=== PATIENT | male | born 1985 | race Caucasian/White ===

== ENCOUNTER → 2018-11-02 08:57 | Outpatient (CLI) | payer SELFPAY ==
[2018-11-02 11:17] LABS: TSH w/ Reflex to FT4 4.94 uIU/mL (0.47-4.68)
[2018-11-02 11:44] LABS: Free T4, Direct Thyroxine 1.62 ng/dL (0.78-2.19)
== END ==
PROVIDERS: PCP Family Medicine; Visit Provider Family Medicine
DX: E03.9 Hypothyroidism, unspecified (principal)
CPT/HCPCS: 36415; 84439; 84443

== ENCOUNTER → 2019-01-02 07:12 | Outpatient (CLI) | payer SELFPAY ==
[2019-01-02 08:46] LABS: TSH w/ Reflex to FT4 4.19 uIU/mL (0.47-4.68)
== END ==
PROVIDERS: PCP Family Medicine; Visit Provider Family Medicine
DX: E03.9 Hypothyroidism, unspecified (principal)
CPT/HCPCS: 36415; 84443

== ENCOUNTER → 2020-04-21 09:44 | Outpatient (CLI) | payer OTHER, SELFPAY ==
[2020-04-21 10:22] LABS: Add Manual Diff / Slide Review NO; Basophils Absolute Auto 0 /uL (0-100); Basophils Percent Auto 0.5 % (0-2); Eosinophils Absolute Auto 100 /uL (0-450); Eosinophils Percent Auto 1.9 % (2-4); Hematocrit 38.2 % (41-53); Lymphocytes Absolute Auto 1400 /uL (1100-4500); Lymphocytes Percent Auto 23.5 % (25-40); Mean Corpuscular HGB Conc 33.9 % (30-36); Mean Corpuscular Hemoglobin 29.3 PG (26-34); Mean Corpuscular Volume 86.4 fL (80-100); Monocytes Absolute Auto 500 /uL (0-900); Monocytes Percent Auto 7.9 % (3-14); Neutrophils Absolute Auto 3800 /uL (1500-7000); Neutrophils Percent Auto 66.2 % (50-75); Platelet Count 198 X10^3/uL (150-400); Red Blood Cell Count 4.42 X10^6/uL (4.5-5.9); Red Cell Distribution Width 14.1 % (11.6-14.8); White Blood Cell Count 5.8 X10^3/uL (4.5-11.0)
[2020-04-21 10:36] LABS: Alanine Aminotransferase 19 IU/L (<50); Albumin Globulin Ratio 1.3 (1.0-2.8); Alkaline Phosphatase 84 U/L (38-126); Aspartate Aminotransferase 23 IU/L (17-59); Bilirubin Total 0.6 mg/dL (0.2-1.3); Blood Urea Nitrogen 20 mg/dL (9-20); Calcium 8.9 mg/dL (8.4-10.2); Carbon Dioxide 30 mmol/L (22-32); Chloride 106 mmol/L (98-107); Cholesterol 139 mg/dL (140-199); Estimated Glomerular Filt Rate > 60.0 mL/min (>60); Globulin 3.2 g/dL (1.7-4.1); Glucose 96 mg/dL (70-100); HDL Cholesterol 36 mg/dL (40-60); HEMOLYSIS < 15 (0-50); LDL Cholesterol Calculated 70 mg/dL (<100); Potassium 4.1 mmol/L (3.4-5.1); Sodium 139 mmol/L (137-145); Total Protein 7.2 g/dL (6.3-8.2); Triglycerides 163 mg/dL (35-150)
[2020-04-21 11:17] LABS: TSH w/ Reflex to FT4 2.46 uIU/mL (0.47-4.68)
== END ==
PROVIDERS: PCP Family Medicine; Referring Provider Family Medicine; Visit Provider Family Medicine
DX: E66.01 Morbid (severe) obesity due to excess calories (principal); E03.9 Hypothyroidism, unspecified; Z68.44 Body mass index [BMI] 60.0-69.9, adult
CPT/HCPCS: 36415; 80053; 80061; 84443; 85025

== ENCOUNTER → 2020-10-02 12:35 | Outpatient (CLI) | payer OTHER, SELFPAY ==
[2020-10-02] MEDS: COVID-19 VACC, Ad26(JANSSEN)/PF 0.5 ML IM (12:42)
== END ==
PROVIDERS: PCP Family Medicine; Visit Provider Internal Medicine
DX: Z23 Encounter for immunization (principal)
CPT/HCPCS: 0031A; 91303

== ENCOUNTER → 2021-03-12 09:42 | Outpatient (CLI) | payer OTHER, SELFPAY ==
[2021-03-12 10:57] LABS: Add Manual Diff / Slide Review NO; Basophils Absolute Auto 0 /uL (0-100); Basophils Percent Auto 0.5 % (0-2); Eosinophils Absolute Auto 200 /uL (0-450); Eosinophils Percent Auto 2.3 % (2-4); Hematocrit 40.3 % (41-53); Hemoglobin 13.8 g/dL (13.5-17.5); Lymphocytes Absolute Auto 2100 /uL (1100-4500); Lymphocytes Percent Auto 28.7 % (25-40); Mean Corpuscular HGB Conc 34.2 % (30-36); Mean Corpuscular Hemoglobin 29.9 PG (26-34); Mean Corpuscular Volume 87.6 fL (80-100); Monocytes Absolute Auto 500 /uL (0-900); Monocytes Percent Auto 7.4 % (3-14); Neutrophils Absolute Auto 4500 /uL (1500-7000); Neutrophils Percent Auto 61.1 % (50-75); Platelet Count 222 X10^3/uL (150-400); Red Cell Distribution Width 13.6 % (11.6-14.8); White Blood Cell Count 7.4 X10^3/uL (4.5-11.0)
[2021-03-12 11:11] LABS: Hemoglobin A1C% w Est Avg Glu 4.8 % (4.0-6.0)
[2021-03-12 11:12] LABS: Alanine Aminotransferase 20 IU/L (<50); Albumin 4.2 g/dL (3.5-5.0); Albumin Globulin Ratio 1.3 (1.0-2.8); Alkaline Phosphatase 84 U/L (38-126); Aspartate Aminotransferase 25 IU/L (17-59); BUN Creatinine Ratio 19.1 (6-22); Bilirubin Total 0.6 mg/dL (0.2-1.3); Blood Urea Nitrogen 18 mg/dL (9-20); Calcium 9.1 mg/dL (8.4-10.2); Carbon Dioxide 30 mmol/L (22-32); Chloride 105 mmol/L (98-107); Cholesterol 149 mg/dL (140-199); Estimated Glomerular Filt Rate > 60.0 mL/min (>60); Globulin 3.3 g/dL (1.7-4.1); Glucose 94 mg/dL (70-100); HDL Cholesterol 38 mg/dL (40-60); HEMOLYSIS < 15 (0-50); LDL Cholesterol Calculated 78 mg/dL (<100); Potassium 3.8 mmol/L (3.4-5.1); Sodium 139 mmol/L (137-145); Total Protein 7.5 g/dL (6.3-8.2); Triglycerides 167 mg/dL (35-150)
[2021-03-12 11:41] LABS: Prostate Specific Antigen Scrn 0.449 ng/mL (0.1-4.0)
[2021-03-12 13:47] LABS: TSH w/ Reflex to FT4 2.08 uIU/mL (0.47-4.68)
== END ==
PROVIDERS: PCP Family Medicine; Referring Provider Family Medicine; Visit Provider Family Medicine
DX: E03.9 Hypothyroidism, unspecified (principal); E66.01 Morbid (severe) obesity due to excess calories; Z68.44 Body mass index [BMI] 60.0-69.9, adult; E78.5 Hyperlipidemia, unspecified; Z12.5 Encounter for screening for malignant neoplasm of prostate
CPT/HCPCS: 36415; 80053; 80061; 83036; 84443; 85025; G0103

== ENCOUNTER → 2021-05-06 10:24 | Outpatient (CLI) | payer OTHER, SELFPAY ==
[2021-05-06 12:22] LABS: Hepatitis B Surface Antigen NEGATIVE s/c (NEGATIVE)
[2021-05-07 09:03] LABS: Varicella IgG Antibody 1775 index (Immune >165)
[2021-05-12 11:20] LABS: Hepatitis B Surf Ab Qualitativ Non Reactive (.)
== END ==
PROVIDERS: PCP Family Medicine; Referring Provider Family Medicine; Visit Provider Family Medicine
DX: Z01.84 Encounter for antibody response examination (principal)
CPT/HCPCS: 36415; 86706; 86765; 86787; 87340

== ENCOUNTER → 2023-01-03 13:56 | Outpatient (CLI) | payer OTHER, SELFPAY ==
[2023-01-03 15:26] LABS: Add Manual Diff / Slide Review NO; Basophils Absolute Auto 0 /uL (0-100); Basophils Percent Auto 0.6 % (0-2); Eosinophils Absolute Auto 100 /uL (0-450); Eosinophils Percent Auto 1.7 % (2-4); Hematocrit 40.9 % (41-53); Hemoglobin 14.5 g/dL (13.5-17.5); Lymphocytes Absolute Auto 1600 /uL (1100-4500); Lymphocytes Percent Auto 21.4 % (25-40); Mean Corpuscular HGB Conc 35.4 % (30-36); Mean Corpuscular Hemoglobin 30.8 PG (26-34); Mean Corpuscular Volume 87.2 fL (80-100); Monocytes Absolute Auto 600 /uL (0-900); Monocytes Percent Auto 7.5 % (3-14); Neutrophils Absolute Auto 5100 /uL (1500-7000); Neutrophils Percent Auto 68.8 % (50-75); Platelet Count 241 X10^3/uL (150-400); Red Blood Cell Count 4.69 X10^6/uL (4.5-5.9); Red Cell Distribution Width 13.5 % (11.6-14.8); White Blood Cell Count 7.5 X10^3/uL (4.5-11.0)
[2023-01-03 15:52] LABS: Alanine Aminotransferase 22 IU/L (<50); Albumin 4.5 g/dL (3.5-5.0); Albumin Globulin Ratio 1.5 (1.0-2.8); Alkaline Phosphatase 89 U/L (38-126); Aspartate Aminotransferase 24 IU/L (17-59); BUN Creatinine Ratio 17.2 (6-22); Bilirubin Total 0.9 mg/dL (0.2-1.3); Blood Urea Nitrogen 16 mg/dL (9-20); Calcium 9.3 mg/dL (8.4-10.2); Carbon Dioxide 27 mmol/L (22-32); Chloride 100 mmol/L (98-107); Cholesterol 163 mg/dL (140-199); Estimated Glomerular Filt Rate > 60 mL/min (>60); Globulin 3.1 g/dL (1.7-4.1); Glucose 87 mg/dL (70-100); HDL Cholesterol 43 mg/dL (40-60); HEMOLYSIS < 15 (0-50); LDL Cholesterol Calculated 82 mg/dL (<100); Potassium 4.1 mmol/L (3.4-5.1); Sodium 137 mmol/L (137-145); Total Protein 7.6 g/dL (6.3-8.2); Triglycerides 190 mg/dL (35-150)
[2023-01-03 16:16] LABS: TSH w/ Reflex to FT4 3.68 uIU/mL (0.47-4.68)
[2023-01-04 05:30] LABS: x Labcorp Estim. Avg Glu (eAG) 97 mg/dL (.)
== END ==
PROVIDERS: PCP Family Medicine; Referring Provider Family Medicine; Visit Provider Family Medicine
DX: G47.33 Obstructive sleep apnea (adult) (pediatric) (principal); E66.01 Morbid (severe) obesity due to excess calories; Z68.44 Body mass index [BMI] 60.0-69.9, adult; E03.9 Hypothyroidism, unspecified; I10 Essential (primary) hypertension
CPT/HCPCS: 36415; 80053; 80061; 83036; 84443; 85025

== ENCOUNTER → 2024-03-22 07:55 | Outpatient (CLI) | payer OTHER, SELFPAY ==
[2024-03-22 08:45] LABS: Alanine Aminotransferase 19 IU/L (<50); Albumin 4.3 g/dL (3.5-5.0); Albumin Globulin Ratio 1.3 (1.0-2.8); Alkaline Phosphatase 83 U/L (38-126); Aspartate Aminotransferase 25 IU/L (17-59); BUN Creatinine Ratio 19.2 (6-22); Bilirubin Total 0.6 mg/dL (0.2-1.3); Blood Urea Nitrogen 19 mg/dL (9-20); Calcium 9.4 mg/dL (8.4-10.2); Carbon Dioxide 27 mmol/L (22-32); Chloride 106 mmol/L (98-107); Cholesterol 148 mg/dL (140-199); Estimated Glomerular Filt Rate > 60 mL/min (>60); Globulin 3.2 g/dL (1.7-4.1); Glucose 97 mg/dL (70-100); HDL Cholesterol 38 mg/dL (40-60); HEMOLYSIS < 15 (0-50); LDL Cholesterol Calculated 88 mg/dL (<100); Potassium 4.3 mmol/L (3.4-5.1); Sodium 140 mmol/L (137-145); Total Protein 7.5 g/dL (6.3-8.2); Triglycerides 112 mg/dL (35-150)
[2024-03-22 08:48] LABS: Hemoglobin A1C% w Est Avg Glu 4.8 % (4.0-6.0)
[2024-03-22 09:15] LABS: TSH w/ Reflex to FT4 3.86 uIU/mL (0.47-4.68)
[2024-03-22 09:39] LABS: HIV 1 & 2 Ab/Ag 4th Gen Combo NEGATIVE (NEGATIVE); Hep C Virus Ab w/Reflex Quant NEGATIVE s/c (NEGATIVE)
== END ==
PROVIDERS: PCP Family Medicine; Referring Provider Family Medicine; Visit Provider Family Medicine
DX: Z00.00 Encounter for general adult medical examination without abnormal findings (principal); I10 Essential (primary) hypertension; E66.01 Morbid (severe) obesity due to excess calories; Z68.44 Body mass index [BMI] 60.0-69.9, adult; E03.9 Hypothyroidism, unspecified; E78.2 Mixed hyperlipidemia
CPT/HCPCS: 36415; 80053; 80061; 83036; 84443; 86803; 87389

== ENCOUNTER → 2024-05-09 15:55 | Outpatient (CLI) | payer OTHER, SELFPAY ==
--- NOTE | 2024-05-10 12:04 | DIET.OUTPTC ---
Dietary Outpatient Consultation Note Consultation Date: 05/09/2024 Assessment: 39 y M referred to dietitian for E66.01 - Morbid (severe) obesity due to excess calories, E78.2 - Mixed hyperlipidemia, I10 - Essential (primary) hypertension, Z00.00 - Encounter for general adult medical examination without abnormal findings, Z68.44 - Body mass index [BMI] 60.0-69.9, adult. Otto presents today for help choosing healthier convenient and satisfying meals. Is on semaglutide .5 mg dose with no side effects except increase in heartburn symptoms. Notes it has helped reduce appetite. Has tried other weight loss medication and diets before with no lasting results. Busy work and his child make it harder for him to have time for preparing meals. Goes out to eat or chooses quick processed meals i.e mac and cheese. 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 Ht: 6 ft 1 in Wt: 473 lb 8 oz BMI: 62.4 UBW: - Nutrition Diagnosis: Excessive energy intake r/t energy dense selections over nutrient dense aeb diet recall with eating out multiple days per week Inadequate fluid intake r/t decreased awareness of fluid intake aeb diet recall with 40 oz or less water/day Physical inactivity r/t busy life aeb pt reports, mostly sedentary job Interventions: Discussed the following and provided appropriate handouts: -Balanced meals with myplate method and appropriate portion sizing based on needs -Types of fats -Educ on label reading, looked up examples -Increasing fluid -Brainstorming reasonable meals that fit within myplate method and addressing barriers Goals: 1. Add 20 oz a day of water by refilling bottle at lunch 2. Pre-prepped crockpot meal 2-3x/wk 3. Use my plate method to include veg and protein on pasta nights or veg when out to eat Will address activity next session EER: [id number] kcals (MSJ 3165) 90-100 g protein (1 g Adj. IBW), 35-38 g fiber Monitoring/Evaluations: f/u in 6 wks Electronically Signed by: Radha Heller 05/10/24 12:04 Clinical Dietitian [address] [address]
== END ==
PROVIDERS: PCP Family Medicine; Referring Provider Family Medicine
DX: Z00.00 Encounter for general adult medical examination without abnormal findings (principal); E66.01 Morbid (severe) obesity due to excess calories; E78.2 Mixed hyperlipidemia; I10 Essential (primary) hypertension; Z68.44 Body mass index [BMI] 60.0-69.9, adult
CPT/HCPCS: 97802

== ENCOUNTER → 2024-05-13 09:00 | Outpatient (CLI) | payer OTHER, SELFPAY ==
--- NOTE | 2024-05-13 09:03 | DI.RAD.S_ITS ---
PROCEDURE: XR CHEST 2V INDICATIONS: cough TECHNIQUE: 2 views of the chest were acquired. COMPARISON: None. FINDINGS: Surgical changes and devices: None. Lungs and pleura: Right basilar atelectasis and or infiltrate noted medially Mediastinum: Mediastinal contours are normal. Heart size is normal. Bones and chest wall: No suspicious bony abnormalities. Soft tissues appear unremarkable. IMPRESSION: Right basilar atelectasis and or infiltrate Approved by: Freedom Hawk M.D. on 05/13/2024 at 18:56
== END ==
PROVIDERS: PCP Family Medicine; Referring Provider Nurse Practitioner Family; Visit Provider Nurse Practitioner Family
DX: R05.9 Cough, unspecified (principal)
CPT/HCPCS: 71046

== ENCOUNTER → 2024-07-04 15:53 | Outpatient (CLI) | payer OTHER, SELFPAY ==
--- NOTE | 2024-07-04 16:20 | DIET.OUTPTC ---
Dietary Outpatient Consultation Note Consultation Date: 07/04/2024 Assessment: 39 y M referred to dietitian for E66.01 - Morbid (severe) obesity due to excess calories, E78.2 - Mixed hyperlipidemia, I10 - Essential (primary) hypertension, Z00.00 - Encounter for general adult medical examination without abnormal findings, Z68.44 - Body mass index [BMI] 60.0-69.9, adult. Otto presents for f/u reporting doing 1 mg of the semaglutide with no significant symptoms, started drinking additional 20 oz fluids with zero calorie body armour (10 mg sodium). Has stopped eating out at lunch time, has leftovers or goes home to make sandwich lunch. Is not eating out at dinner time either. Difficult/busy during holiday season to prep meals, still doing convenience meals/frozen meals to clear out freezer, but still interested in starting goal of crockpot meals 2-3x/wk. Open to setting goal of physical activity. Ht: 6 ft 1 in Wt: 466 lb 4 oz BMI: 61.4 Weight History: 473 lb 8 oz on 03/26/2024 466 lb 4 oz on 06/28/24 (-1.5% weight loss in 3 months) Nutrition Diagnosis: (improving) Excessive energy intake r/t energy dense selections over nutrient dense aeb diet recall with eating out multiple days per week (Improving) Inadequate fluid intake r/t decreased awareness of fluid intake aeb diet recall with 40 oz or less water/day (goal set today) Physical inactivity r/t busy life aeb pt reports, mostly sedentary job Interventions: Discussed the following -Choosing no calorie beverages with no added sugars or sodium, label reading -Activity -Barriers and problem solving for goals -Brainstorming reasonable meals that fit within myplate method and addressing barriers Goals: 1. Add 20 oz fluids 2. Pre-prepped crockpot meal 2-3x/wk 3. Walk around block 1-2x/wk (on weekends until light at night again) Monitoring/Evaluations: f/u in 2-3 months Electronically Signed by: Radha Heller 07/04/24 16:20 Clinical Dietitian [address] [address]
== END ==
PROVIDERS: PCP Family Medicine; Referring Provider Family Medicine
DX: Z00.00 Encounter for general adult medical examination without abnormal findings (principal); E66.01 Morbid (severe) obesity due to excess calories; E78.2 Mixed hyperlipidemia; I10 Essential (primary) hypertension; Z68.44 Body mass index [BMI] 60.0-69.9, adult; Z71.3 Dietary counseling and surveillance
CPT/HCPCS: 97803

== ENCOUNTER → 2024-09-26 16:22 | Outpatient (CLI) | payer OTHER, SELFPAY ==
--- NOTE | 2024-09-30 15:20 | DIET.OUTPTC ---
Dietary Outpatient Consultation Note Consultation Date: 09/26/2024 Assessment: 39 y M referred to dietitian for E66.01 - Morbid (severe) obesity due to excess calories, E78.2 - Mixed hyperlipidemia, I10 - Essential (primary) hypertension, Z00.00 - Encounter for general adult medical examination without abnormal findings, Z68.44 - Body mass index [BMI] 60.0-69.9, adult. Otto presents for f/u reporting doing crock pot meals were helpful, is wanting to implement easy or pre-prepped meals more often. Comes home from work and needs something <20 minutes prep. Is still working on increasing physical activity. Ht: 6 ft 1 in Wt: 466 lb 4 oz BMI: 61.4 Weight History: 473 lb 8 oz on 03/26/2024 466 lb 4 oz on 06/28/24 (-1.5% weight loss in 3 months) Nutrition Diagnosis: (improving) Excessive energy intake r/t energy dense selections over nutrient dense aeb diet recall with eating out multiple days per week (Improving) Inadequate fluid intake r/t decreased awareness of fluid intake aeb diet recall with 40 oz or less water/day Physical inactivity r/t busy life aeb pt reports, mostly sedentary job Interventions: Discussed the following -Activity -Barriers and problem solving for goals -Brainstorming reasonable meals that fit within myplate method and addressing barriers of time (sheet preston meals, microwave options like rice and vegs with baked chx/fish, prepping meat in crockpot to have for week or freezing in portions for easy heat, adding canned fish to mac and cheese with double veg serving for lean protein and adequate fiber when needing to make mac and cheese) Goals: 1. Creating list of easy meal ideas 2. Swapping meats like hot dogs/sausage for fish or pre-prepped chx/turkey 3. Walk around block 2x/wk Monitoring/Evaluations: f/u in 2-3 months Electronically Signed by: Radha Heller 09/30/24 15:20 Clinical Dietitian [address] [address]
== END ==
PROVIDERS: PCP Family Medicine; Referring Provider Family Medicine
DX: Z00.00 Encounter for general adult medical examination without abnormal findings (principal); E66.01 Morbid (severe) obesity due to excess calories; E78.2 Mixed hyperlipidemia; I10 Essential (primary) hypertension; Z68.44 Body mass index [BMI] 60.0-69.9, adult; Z71.3 Dietary counseling and surveillance
CPT/HCPCS: 97803

== ENCOUNTER → 2025-01-09 16:29 | Outpatient (CLI) | payer OTHER, SELFPAY ==
--- NOTE | 2025-01-14 12:02 | DIET.OUTPTC ---
Dietary Outpatient Consult Consultation Date: 01/14/2025 Assessment: 39 y M referred to dietitian for E66.01 - Morbid (severe) obesity due to excess calories, E78.2 - Mixed hyperlipidemia, I10 - Essential (primary) hypertension, Z00.00 - Encounter for general adult medical examination without abnormal findings, Z68.44 - Body mass index [BMI] 60.0-69.9, adult. Recently stopped the semaglutide as it wasn't helping, gained some weight, and now starting Tirzepatide. Recently has been kayaking and more walks during summer, 2-3x/wk. Also notes work has been active lately with projects. Going out to eat on avg 50% of time now, usually just eats half of sandwich and saves the rest of leftovers. Ht: 6 ft 1 in Weight History: 473 lb 8 oz on 03/26/2024 466 lb 4 oz on 06/28/24 (-1.5% weight loss in 3 months) 496 lb on 12/2024 Nutrition Diagnosis: (improving) Excessive energy intake r/t energy dense selections over nutrient dense aeb diet recall with eating out multiple days per week (improving) Physical inactivity r/t busy life aeb pt reports, mostly sedentary job Interventions: Discussed the following -Activity -Doing breakfast and lunch to help with portions at dinner -Adding fiber source when out to eat -GI side effects that may occur when talking the semaglutide (i.e nausea/diarrhea) and working on saturated fat intake, hydration, smaller freq meals as needed to help reduce side effects Goals: 1. Continue activity aiming for 3x/wk 2. Having protein oats in morning and protein granola bar at lunch to add those meals back in 3. If dinner is takeout, when eating it at home, add fruit or microwave or chopped vegs 1 cup Monitoring/Evaluations: f/u in 2-3 months, sooner as needed Electronically Signed by: Radha Heller Clinical Dietitian [address] [address]
== END ==
LOC: DIET 16:30
PROVIDERS: PCP Family Medicine
DX: Z00.00 Encounter for general adult medical examination without abnormal findings (principal); E66.01 Morbid (severe) obesity due to excess calories; E78.2 Mixed hyperlipidemia; I10 Essential (primary) hypertension; Z68.44 Body mass index [BMI] 60.0-69.9, adult
CPT/HCPCS: 97803

== ENCOUNTER → 2025-03-28 11:58 | Outpatient (CLI) | payer OTHER, SELFPAY ==
[2025-03-28 13:31] LABS: Alanine Aminotransferase 18 IU/L (<50); Albumin 4.2 g/dL (3.5-5.0); Albumin Globulin Ratio 1.4 (1.0-2.8); Alkaline Phosphatase 83 U/L (38-126); Blood Urea Nitrogen 19 mg/dL (9-20); Calcium 9.3 mg/dL (8.4-10.2); Carbon Dioxide 25 mmol/L (22-32); Chloride 104 mmol/L (98-107); Cholesterol 154 mg/dL (140-199); Estimated Glomerular Filt Rate > 60 mL/min (>60); Globulin 2.9 g/dL (1.7-4.1); Glucose 98 mg/dL (70-99); HDL Cholesterol 46 mg/dL (40-60); HEMOLYSIS < 15 (0-50); Potassium 4.7 mmol/L (3.4-5.1); Sodium 139 mmol/L (137-145); Total Protein 7.1 g/dL (6.3-8.2); Triglycerides 114 mg/dL (35-150)
[2025-03-28 13:54] LABS: TSH w/ Reflex to FT4 4.95 uIU/mL (0.47-4.68)
[2025-03-28 14:18] LABS: Free T4, Direct Thyroxine 1.33 ng/dL (0.78-2.19)
== END ==
PROVIDERS: PCP Family Medicine; Referring Provider Family Medicine; Visit Provider Family Medicine
DX: E03.9 Hypothyroidism, unspecified (principal); E66.01 Morbid (severe) obesity due to excess calories; Z68.44 Body mass index [BMI] 60.0-69.9, adult
CPT/HCPCS: 36415; 80053; 80061; 84439; 84443

== ENCOUNTER → 2025-04-16 16:16 | Outpatient (CLI) | payer OTHER, SELFPAY ==
--- NOTE | 2025-04-16 16:52 | DIET.OUTPTC ---
Dietary Outpatient Consult Consultation Date: 04/16/2025 Assessment: 39 y M referred to dietitian for E66.01 - Morbid (severe) obesity due to excess calories, E78.2 - Mixed hyperlipidemia, I10 - Essential (primary) hypertension, Z00.00 - Encounter for general adult medical examination without abnormal findings, Z68.44 - Body mass index [BMI] 60.0-69.9, adult. Tirzepatide is going well, back to weight from last year. Notes feeling less hungry. No GI side effects. Isn't skipping meals. Difficult to include exercise based on sedentary job and getting dark sooner. Potentially do activities/games on VR headset. Diet recall: B-24 oz latte with milk L-subway/arabellaStylenda sandwich D-Jadiel's meat/sauce mixture from [employer] (650 mg or less sodium total, most are <20% SFA, 20-25 g protein) over rice and vegs Ht: 6 ft 1 in Weight History: 473 lb 8 oz on 03/26/2024 466 lb 4 oz on 06/28/24 (-1.5% weight loss in 3 months) 496 lb on 12/2024 473 lb 03/2025 Nutrition Diagnosis: (improving) Excessive energy intake r/t energy dense selections over nutrient dense aeb diet recall with eating out multiple days per week (improving) Physical inactivity r/t busy life aeb pt reports, mostly sedentary job Interventions: Discussed the following -Activity -Protein needs -Reviewed nutrition facts of J[employer]'s [employer] meals New Goals: 1. Start activity again aiming for 3x/wk - 30 min walk on weekend, using VR headset for activity 2x/wk 2. 100 g protein daily - can use protein overnight oats to help with breakfast in morning EER: 100-125 g protein (1-1.3 g/kg of adjusted IBW) will readjust based on PA as needed. Monitoring/Evaluations: f/u in 3 months, sooner as needed Electronically Signed by: Radha Heller Clinical Dietitian [address] [address]
== END ==
LOC: DIET 16:16
PROVIDERS: PCP Family Medicine; Referring Provider Family Medicine
DX: Z00.00 Encounter for general adult medical examination without abnormal findings (principal); E66.01 Morbid (severe) obesity due to excess calories; E78.2 Mixed hyperlipidemia; I10 Essential (primary) hypertension; Z68.44 Body mass index [BMI] 60.0-69.9, adult; Z71.3 Dietary counseling and surveillance
CPT/HCPCS: 97803

== ENCOUNTER → 2025-05-02 16:21 | Outpatient (CLI) | payer OTHER, SELFPAY | PROVIDERS: PCP Family Medicine; Visit Provider Urology | DX: R39.9 Unspecified symptoms and signs involving the genitourinary system (principal) | CPT/HCPCS: 87086 ==

== ENCOUNTER 2025-05-16 06:04 | Day surgery (SDC) | payer OTHER, SELFPAY ==
[2025-04-25 08:21] VITALS: BMI 62.4
[2025-05-16] MEDS: LACTATED RINGERS 1,000 ML 21 ML IV (06:40)
[2025-05-16 06:47] VITALS: BP 142/77; PULSE 90; RESP 16; TEMP 36.5; O2SAT 97
--- NOTE | 2025-05-16 07:32 | PM.PREOP ---
Pre-operative Note COVID-19 COVID-19 status: Not tested Interval Note History & Physical reviewed/Exam performed by Physician: Yes Changes to H&P: No
--- NOTE | 2025-05-16 08:29 | PM.OP.1 ---
Operative Date/Time/Diagnoses Date of procedure: 05/16/25 Time of procedure: 08:00 Pre-op diagnosis: Desired sterility Post-op diagnosis: same Procedure & Clinicians Procedure: Vasectomy Same procedure(s) as scheduled: Yes Indications: 40 y/o M who is happily to his and they have one child together and are both adamant they do not want any additional children. Discussed risks of the procedure in detail to include but not limited to pain, bleeding, infection, hematoma development, 1% failure rate requiring a repeat procedure, inadvertent injury to the testicular artery leading to testicular atrophy/loss, chronic pain and the 1 in 1999 chance that despite him having no sperm or rare non-motile sperm on his post-vasectomy semen analysis that the vas deferens somehow reconnects and leads to sperm within his ejaculate within his lifetime. Discussed that he should refrain from heavy lifting for 7-10 days, no sexual activity for 7-10 days, continue using contraception until he has a semen analysis that notes that his procedure was a success and that he should have his semen analysis performed 3 months from now after at least 20 ejaculations. Discussed that secondary to his body habitus, I would strongly recommend that we perform his vasectomy under general anesthesia. After careful consideration of his treatment options, he would prefer to have it done under anesthesia as well. Surgeon: Ru Ambriz Assisted?: No Anesthesia Type: MAC +/- Operative Notes Findings: Difficult to palpate vas deferens bilaterally secondary to body habitus Closure Type: primary Specimen(s): none sent Applied: none Estimated Blood Loss (mL): 2 Blood products transfused: none Procedure in detail: Procedure: Vasectomy CPT Code: 53067 Indication: 40 y/o M who is happily and has one child with his strongly desires sterility. Following informed consent, patient was positioned supine and prepped and draped in the standard sterile fashion. A total of 5cc of 1:1 mixture of 2% Lidocaine plain and 0.5% Marcaine plain was utilized for anesthetic throughout the procedure. The right vas deferens was isolated underneath the skin and local anesthetic was instilled into the scrotum. A 1cm incision was made using an 11 blade. The subcutaneous tissue was then bluntly dissected using curved sharp hemostats. The vas deferens was isolated using the vas clamp and elevated out of the incision. A small surgical clip was then placed on the distal and proximal aspect of the vas deferens to allow for sharp excision of 1cm of vas deferens. The testicular and abdominal ends of the vas were then fulgurated using electrocautery. Hemostasis was evaluated and noted to be excellent. The procedure was then repeated in similar fashion on the left side. The incision were then closed using 4-0 Chromic in a figure of 8 fashion. The patient tolerated the procedure without any immediate complications and was transferred to the PACU in stable condition for recovery. Complications: none Post-operative Condition: stable Disposition: PACU Plan for aftercare: Discharge home from PACU. Will get a semen analysis in 3 months to evaluate for persistence of sperm in his ejaculate.
[2025-05-16 08:31] VITALS: BP 134/53; PULSE 82; RESP 14; TEMP 36.8; O2SAT 95
[2025-05-16 08:35] VITALS: BP 137/57; PULSE 77; RESP 14; O2SAT 95
[2025-05-16 08:40] VITALS: BP 139/63; PULSE 77; RESP 14; O2SAT 95
[2025-05-16] MEDS: LIDOCAINE 1% 20 ML INJ (08:41)
[2025-05-16 08:45] VITALS: BP 139/64; PULSE 78; RESP 16; TEMP 36.8; O2SAT 96
== END 2025-05-16 09:23 | disposition home or self-care (01) ==
PROVIDERS: PCP Family Medicine; Referring Provider Urology; Visit Provider Urology
PROC: (CPT 55250; principal; 2025-05-16 07:45)
DX: Z30.2 Encounter for sterilization (principal); I10 Essential (primary) hypertension; E78.2 Mixed hyperlipidemia; E03.9 Hypothyroidism, unspecified; G47.33 Obstructive sleep apnea (adult) (pediatric); E66.01 Morbid (severe) obesity due to excess calories; Z68.44 Body mass index [BMI] 60.0-69.9, adult
CPT/HCPCS: 55250; 82962; J0687; J2405; J2704; J7050; J7120